=== PATIENT | female | born 1965 | race Caucasian/White ===

== ENCOUNTER 2022-07-29 22:08 | Emergency (ER) | payer OTHER ==
[2022-07-29 22:24] VITALS: BP 127/80; PULSE 90; RESP 16; TEMP 98; BMI 23.1
== END 2022-07-30 00:05 | disposition home or self-care (01) ==
LOC: FER 22:08
DX: R22.42 Localized swelling, mass and lump, left lower limb (principal)
CPT/HCPCS: 93971-TC; 99284-25

== ENCOUNTER 2023-07-03 11:18 | Emergency (ER) | payer OTHER ==
[2023-07-03 11:29] VITALS: BP 121/90; PULSE 102; RESP 20; TEMP 98.8; BMI 24.3
== END 2023-07-03 12:04 | disposition home or self-care (01) ==
LOC: FER 11:18
DX: R05.9 Cough, unspecified (principal); R09.81 Nasal congestion; J02.9 Acute pharyngitis, unspecified; R09.89 Other specified symptoms and signs involving the circulatory and respiratory systems; R09.3 Abnormal sputum; Z20.822 Contact with and (suspected) exposure to COVID-19
CPT/HCPCS: 0241U-QW; 99283-25